=== PATIENT | female | born 1940 | race Caucasian/White ===

== ENCOUNTER 2018-10-14 08:30 | Inpatient (IN) | payer OTHER ==
[~2018-10-14] VITALS: Ht 165.1 cm; Wt 63.0 kg
[2018-10-22] MEDS ORDERED: PLAVIX75 MG PO (11:15)
[2018-10-22] MEDS ORDERED: LOSARTAN POTASS50 MG PO (11:15)
[2018-10-22] MEDS ORDERED: LEVOXYL75 MCG PO (11:15)
[2018-10-24] MEDS ORDERED: ELIQUIS2.5 MG PO (08:58)
[2018-10-24] MEDS ORDERED: PERCOCET 5-3251 EACH PO (08:58)
[2018-10-24] MEDS ORDERED: CEFADROXIL500 MG PO (08:58)
== END 2018-10-24 16:29 | DRG 470 ==
LOC: SURH 10-21 08:00 → O/R 10-21 08:00 → SURH 10-21 08:30
PROVIDERS: Orthopaedic Surgery
PROC: 0MNN0ZZ Release Right Knee Bursa and Ligament, Open Approach (ICD-10-PCS; 2018-10-21)
PROC: 0SRC0J9 Replacement of Right Knee Joint with Synthetic Substitute, Cemented, Open Approach (ICD-10-PCS; principal; 2018-10-21 16:00)
DX: M17.11 Unilateral primary osteoarthritis, right knee (principal); D62 Acute posthemorrhagic anemia; I10 Essential (primary) hypertension; M81.0 Age-related osteoporosis without current pathological fracture; E03.8 Other specified hypothyroidism

== ENCOUNTER 2018-11-19 11:30 | Emergency (ER) | payer OTHER ==
[~2018-11-19] VITALS: Ht 167.6 cm; Wt 59.9 kg
[~2018-11-19 11:30] MED LIST: CEFADROXIL500 MG PO; ELIQUIS2.5 MG PO; LEVOXYL75 MCG PO; LOSARTAN POTASS50 MG PO; PERCOCET 5-3251 EACH PO; PLAVIX75 MG PO
[2018-11-19] MEDS ORDERED: SKELAXIN800 MG PO (16:48)
[2018-11-19] MEDS ORDERED: CEPHALEXIN500 MG PO (16:48)
[2018-11-19] MEDS ORDERED: TYLENOL-CODEINE1 TA1 PO (16:48)
== END 2018-11-19 17:29 | disposition home or self-care (01) ==
LOC: ER 11:30
DX: N39.0 Urinary tract infection, site not specified (principal); R53.1 Weakness; M25.561 Pain in right knee

== ENCOUNTER 2019-03-18 09:55 | Outpatient (CLI) | payer OTHER ==
[~2019-03-18 09:55] MED LIST changes: +CEPHALEXIN500 MG PO; +SKELAXIN800 MG PO; +TYLENOL-CODEINE1 TA1 PO
== END 2019-03-18 10:04 | disposition home or self-care (01) ==
LOC: RAD 501 09:55
DX: M25.562 Pain in left knee (principal)

== ENCOUNTER 2019-04-01 07:02 | Outpatient (CLI) | payer OTHER | END 2019-04-01 07:29 | disposition home or self-care (01) | LOC: LAB 07:02 | DX: E55.9 Vitamin D deficiency, unspecified (principal); M85.9 Disorder of bone density and structure, unspecified; E88.89 Other specified metabolic disorders; E21.2 Other hyperparathyroidism; M81.8 Other osteoporosis without current pathological fracture; E56.1 Deficiency of vitamin K; M24.561 Contracture, right knee; Z96.651 Presence of right artificial knee joint ==

== ENCOUNTER 2019-04-01 09:23 | Outpatient (CLI) | payer OTHER | END 2019-04-01 09:30 | disposition home or self-care (01) | LOC: NUCLEAR 09:23 | DX: M81.0 Age-related osteoporosis without current pathological fracture (principal) ==

== ENCOUNTER 2019-04-21 06:12 | Day surgery (SDC) | payer OTHER ==
[~2019-04-21 06:12] MED LIST changes: +PROTONIX20 MG
[2019-04-21] MEDS ORDERED: CIPRO500 MG PO ×2 (12:12→12:20)
[2019-04-21] MEDS ORDERED: PERCOCET 5-3251 EACH PO (12:13)
== END 2019-04-21 17:15 | disposition home or self-care (01) ==
LOC: CIR.AMB 06:12
DX: M24.561 Contracture, right knee (principal); M24.661 Ankylosis, right knee

== ENCOUNTER 2019-07-09 12:53 | Outpatient (CLI) | payer OTHER ==
[~2019-07-09 12:53] MED LIST changes: +CIPRO500 MG PO
== END 2019-07-09 12:55 | disposition home or self-care (01) ==
LOC: RAD 12:53
DX: M25.561 Pain in right knee (principal); M25.562 Pain in left knee

== ENCOUNTER 2019-08-26 08:03 | Outpatient (CLI) | payer OTHER | END 2019-08-26 08:44 | disposition home or self-care (01) | LOC: TOM 08:03 | DX: K56.600 Partial intestinal obstruction, unspecified as to cause (principal); Z85.9 Personal history of malignant neoplasm, unspecified; D01.1 Carcinoma in situ of rectosigmoid junction ==

== ENCOUNTER 2019-11-28 09:12 | Emergency (ER) | payer OTHER ==
[~2019-11-28] VITALS: Ht 165.1 cm; Wt 62.6 kg
== END 2019-11-28 13:13 | disposition home or self-care (01) ==
LOC: ER 09:12
DX: J06.9 Acute upper respiratory infection, unspecified (principal)

== ENCOUNTER 2019-12-15 07:57 | Emergency (ER) | payer OTHER ==
[~2019-12-15] VITALS: Ht 165.1 cm; Wt 63.5 kg
== END 2019-12-15 10:14 | disposition home or self-care (01) ==
LOC: ER 07:57
DX: M75.52 Bursitis of left shoulder (principal)

== ENCOUNTER 2020-10-06 08:51 | Emergency (ER) | payer OTHER ==
[~2020-10-06] VITALS: Ht 162.6 cm; Wt 64.4 kg
== END 2020-10-06 14:17 | disposition home or self-care (01) ==
LOC: ER 08:51
DX: M79.18 Myalgia, other site (principal); R07.89 Other chest pain; R53.81 Other malaise

== ENCOUNTER 2020-10-20 09:55 | Outpatient (CLI) | payer OTHER | END 2020-10-20 13:29 | disposition home or self-care (01) | LOC: NUCLEAR 09:55 | PROVIDERS: ATTEND Internal Medicine Cardiovascular Disease | DX: I20.1 Angina pectoris with documented spasm (principal) | CPT/HCPCS: 78452; 93017; A9500; J0153 ==

== ENCOUNTER 2022-01-03 06:52 | Emergency (ER) | payer OTHER ==
[~2022-01-03] VITALS: Ht 165.1 cm; Wt 64.4 kg
== END 2022-01-03 11:03 | disposition home or self-care (01) ==
LOC: ER 06:52
DX: M54.2 Cervicalgia (principal); I10 Essential (primary) hypertension; Z88.8 Allergy status to other drugs, medicaments and biological substances

== ENCOUNTER 2023-07-17 18:42 | Emergency (ER) | payer OTHER ==
[~2023-07-17] VITALS: Ht 165.1 cm; Wt 62.1 kg
[2023-07-17] MEDS ORDERED: PEPCID20 MG PO (18:58)
== END 2023-07-17 22:05 | disposition home or self-care (01) ==
LOC: ER 18:42
PROVIDERS: General Practice
DX: R07.89 Other chest pain (principal); Z88.6 Allergy status to analgesic agent; Z86.73 Personal history of transient ischemic attack (TIA), and cerebral infarction without residual deficits; I10 Essential (primary) hypertension; E78.00 Pure hypercholesterolemia, unspecified; M94.0 Chondrocostal junction syndrome [Tietze]
CPT/HCPCS: 36415; 71045; 93005; 96365; 96366; 99284; J2360; J7042